=== PATIENT | male | born 1940 | race Caucasian/White ===

== ENCOUNTER → 2016-12-17 | Outpatient (CLI) | payer OTHER, BC ==
[~2016-12-17] MED LIST: ACYC-147 PO; CYAN1TAB4 PO; FOLI400T41 PO; GABA-113 PO; LCTX PO; MAGN1CAP2; MULT-845 PO; PANT40TA PO; SPIR25TA89 PO; TPRSR50 PO
[2016-12-17 10:48] LABS: BASO % 0.3 %; BASO ABS # 0.01 K/uL (0-0.2); COMPLETE YES; EOS % 1.6 %; HEMATOCRIT 39.3 % (42-52); IG% 0.9 %; LYMPH % 19.6 %; LYMPH ABS # 0.62 K/uL (1.2-3.4); MEAN CELL VOLUME 94.2 fL (80-100); MEAN CORPUSCULAR HEMOGLOBIN 32.9 pg (25-34); MEAN CORPUSCULAR HGB CONC 34.9 g/dl (32-36); MEAN PLATELET VOLUME 9.2 fL (7.4-10.4); MONO % 7.9 %; NEUT % 69.7 %; PLATELET COUNT 210 K/uL (130-400); RED BLOOD COUNT 4.17 M/uL (4.7-6.1); WHITE BLOOD COUNT 3.17 K/uL (4.8-10.8)
[2016-12-17 10:56] LABS: URINE APPEARANCE CLEAR (CLEAR); URINE BILIRUBIN NEG (NEG); URINE COLOR YELLOW; URINE NITRITE NEG (NEG); URINE SPECIFIC GRAVITY 1.019 (1.000-1.030); UROBILINOGEN NEG (NEG)
[2016-12-17 10:58] LABS: MANUAL MICROSCOPIC REQUIRED? NO; REVIEW REQ? NO
[2016-12-17 11:22] LABS: ESTIMATED AVERAGE GLUCOSE 117 mg/dl; HA1C FLAG Normal (Normal)
[2016-12-17 11:39] LABS: BLOOD UREA NITROGEN 19 mg/dl (7-18); BUN/CREATININE RATIO 15.8 (10-20); CARBON DIOXIDE 29 mmol/L (21-32); CHLORIDE 105 mmol/L (98-107); CHOLESTEROL 142 mg/dl (0-200); MAGNESIUM 2.4 mg/dl (1.8-2.4); POTASSIUM 4.1 mmol/L (3.5-5.1); SODIUM 141 mmol/L (136-145); TRIGLYCERIDES 285 mg/dl (0-150); URIC ACID 6.3 mg/dl (2.6-7.2); VERY LOW DENSITY LIPOPROT CALC 57 mg/dl
[2016-12-17 11:43] LABS: PROSTATE SPECIFIC ANTIGEN < 0.010 ng/ml (0.000-4.000)
[2016-12-17 11:44] LABS: GLUCOSE 126 mg/dl (70-99)
[2016-12-17 11:49] LABS: CHOLESTEROL/HDL RATIO 6.2; HDL CHOLESTEROL 23 mg/dl; LDL CHOLESTEROL CALCULATED 62 mg/dl
--- NOTE | 2016-12-24 06:14 | CODING QUERY MEDICAL NECESSITY ---
SUPPORTING DIAGNOSIS NEEDED Dr. Enamorado, A supporting diagnosis is required for the test/procedure performed on this patient in order for us to be reimbursed by the patient's insurance. Please provide a supporting diagnosis for the following test/procedure listed below next to the test name along with your signature. *If there is no additional diagnosis for this patient that would support the following test/procedure please document that below next to the test/procedure. Test(s)/Procedure(s) that require a supporting diagnosis: * [id number] GLYCATED HEMOGLOBIN DIAGNOSIS: DATE OF SERVICE: 12/17/16 Provider Signature: Date: Thank you Jordan Zuniga [facility] Information Management Once completed, please kindly fax back to [phone] For questions please call [phone]
== END | disposition home or self-care (01) ==
LOC: C.LAB1850 09:25
PROVIDERS: ATTEND Internal Medicine
DX: C88.0 Waldenstrom macroglobulinemia (principal); C61 Malignant neoplasm of prostate; R73.9 Hyperglycemia, unspecified

== ENCOUNTER → 2017-07-05 | Outpatient (CLI) | payer OTHER, BC ==
--- NOTE | 2017-07-05 15:14 | DIAGNOSTIC IMAGING REPORT ---
TWO VIEW CHEST CLINICAL HISTORY: Dyspnea on exertion. FINDINGS: PA and lateral chest radiographs are compared to study dated 02/10/2016 and correlated with chest CT dated 07/11/2015. A left subclavian central venous infusion port is unchanged in position. The cardiomediastinal silhouette is unremarkable. There is atherosclerotic calcification of the thoracic aorta. Pulmonary vasculature is noncongested chronic interstitial thickening similar to previous. There is elevation of left hemidiaphragm. A trace left pleural effusion is noted. There is no pneumothorax. The skeletal structures are osteopenic. Degenerative changes noted throughout the thoracic spine. There are acute minimally distracted left lateral 7th and 8th rib fractures. IMPRESSION: 1. There is left basilar atelectasis and a trace left pleural effusion. 2. There are acute appearing minimally distracted left lateral 7th and 8th rib fractures. Electronically signed by: Phil Mar M.D. 07/05/2017 3:13 PM Dictated Date/Time: 07/05/2017 3:10 PM
--- NOTE | 2017-07-05 15:17 | DIAGNOSTIC IMAGING REPORT ---
L RIBS UNILATERAL WITH PA CHEST HISTORY: 77 years-old Male R06.02 SOB (shortness of breath) on [id number] acute shortness of breath with left-sided rib pain status post fall COMPARISON: Chest radiograph 07/05/2017 at 2:33 PM TECHNIQUE: 5 views of the left ribs. FINDINGS: Acute transverse fractures involve the posterior lateral aspects of the left sixth and eighth ribs without significant displacement. Acute mildly displaced fracture involves the posterior lateral aspect of the left seventh rib. Moderate stool volume is seen throughout the colon. Left pectoral Tjjewm-k-Bdgy catheter is noted with distal tip terminating in the region of the SVC. Linear subsegmental left basilar opacities suggest atelectasis. Blunting of left costophrenic angle. IMPRESSION: Acute fractures of the posterior lateral left sixth through eighth ribs with mild displacement of the seventh rib fracture. The above report was generated using voice recognition software. It may contain grammatical, syntax or spelling errors. Electronically signed by: Kurt Swift M.D. 07/05/2017 3:16 PM Dictated Date/Time: 07/05/2017 3:11 PM
--- NOTE | 2017-07-05 15:17 | DIAGNOSTIC IMAGING REPORT ---
LEFT SHOULDER 2 VIEWS; LEFT SCAPULA 2 VIEWS CLINICAL HISTORY: Fall with left shoulder pain. FINDINGS: 2 views of the left shoulder anterior views of the left scapula are obtained. No prior studies are available for comparison at the time of dictation. The skeletal structures are osteopenic. There is no radiographic evidence of fracture or dislocation involving the left shoulder. Mild productive change is seen at the acromioclavicular joint. There is no radiographic evidence of left scapular fracture. The visualized left upper lobe lung parenchyma appears clear. A left subclavian central venous infusion port is noted. There are acute appearing left lateral 6th and 7th rib fractures. IMPRESSION: 1. Osteopenia with no radiographic evidence of left shoulder fracture or dislocation. 2. There is no radiographic evidence of left scapular fracture. 3. There are acute appearing left lateral 6th and 7th rib fractures. Electronically signed by: Phil Mar M.D. 07/05/2017 3:16 PM Dictated Date/Time: 07/05/2017 3:13 PM
--- NOTE | 2017-07-05 15:27 | DIAGNOSTIC IMAGING REPORT ---
THORACIC SPINE 3 VIEWS ROUTINE, L-SPINE MIN 4 VIEWS ROUTINE HISTORY: 77 years-old Male R06.02 SOB (shortness of breath) on [id number] acute shortness of breath. Acute back pain status post fall COMPARISON: Lumbar spine radiographs 11/23/2015 TECHNIQUE: 3 views of the thoracic spine with 5 views of the lumbar spine FINDINGS: THORACIC: Left subclavian Mlenne-f-Vxjp catheter is noted with distal tip projecting over the region of the mid SVC. Mild levoscoliosis of the upper thoracic spine. Multilevel bridging osteophytosis with intervertebral disc space narrowing. No acute fracture or subluxation identified. No acute compression fracture is seen. LUMBAR: 5 lumbar type vertebral segments. Extensive bridging osteophytosis redemonstrated. No evidence of spondylolysis or spondylolisthesis. Multilevel intervertebral disc space narrowing with hypertrophic facet arthrosis. Degenerative spurring is also noted throughout the spinous processes. No acute fracture or subluxation identified. Unchanged 3 mm retrolisthesis L2 on L3. Moderate formed stool throughout the colon suggest constipation. IMPRESSION: 1. No acute fracture or subluxation of the thoracic or lumbar spine. 2. 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 The above report was generated using voice recognition software. It may contain grammatical, syntax or spelling errors. Electronically signed by: Kurt Swift M.D. 07/05/2017 3:25 PM Dictated Date/Time: 07/05/2017 3:21 PM
--- NOTE | 2017-07-05 15:27 | DIAGNOSTIC IMAGING REPORT ---
THORACIC SPINE 3 VIEWS ROUTINE, L-SPINE MIN 4 VIEWS ROUTINE HISTORY: 77 years-old Male R06.02 SOB (shortness of breath) on [id number] acute shortness of breath. Acute back pain status post fall COMPARISON: Lumbar spine radiographs 11/23/2015 TECHNIQUE: 3 views of the thoracic spine with 5 views of the lumbar spine FINDINGS: THORACIC: Left subclavian Mhxvrt-d-Tlsw catheter is noted with distal tip projecting over the region of the mid SVC. Mild levoscoliosis of the upper thoracic spine. Multilevel bridging osteophytosis with intervertebral disc space narrowing. No acute fracture or subluxation identified. No acute compression fracture is seen. LUMBAR: 5 lumbar type vertebral segments. Extensive bridging osteophytosis redemonstrated. No evidence of spondylolysis or spondylolisthesis. Multilevel intervertebral disc space narrowing with hypertrophic facet arthrosis. Degenerative spurring is also noted throughout the spinous processes. No acute fracture or subluxation identified. Unchanged 3 mm retrolisthesis L2 on L3. Moderate formed stool throughout the colon suggest constipation. IMPRESSION: 1. No acute fracture or subluxation of the thoracic or lumbar spine. 2. 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 The above report was generated using voice recognition software. It may contain grammatical, syntax or spelling errors. Electronically signed by: Kurt Swift M.D. 07/05/2017 3:25 PM Dictated Date/Time: 07/05/2017 3:21 PM
[2017-07-05 17:00] LABS: HEMATOCRIT 41.4 % (42-52); HEMOGLOBIN 13.3 g/dL (14.0-18.0); MEAN CELL VOLUME 95.4 fL (80-100); MEAN CORPUSCULAR HEMOGLOBIN 30.6 pg (25-34); MEAN CORPUSCULAR HGB CONC 32.1 g/dl (32-36); MEAN PLATELET VOLUME 9.1 fL (7.4-10.4); PLATELET COUNT 242 K/uL (130-400); RED CELL DISTRIBUTION WIDTH CV 18.3 % (11.5-14.5); RED CELL DISTRIBUTION WIDTH SD 64.1 fL (36.4-46.3); WHITE BLOOD COUNT 6.86 K/uL (4.8-10.8)
[2017-07-05 17:50] LABS: BASO % 0.4 %; BASO ABS # 0.03 K/uL (0-0.2); EOS % 0.7 %; EOS ABS # 0.05 K/uL (0-0.5); LYMPH % 13.7 %; LYMPH ABS # 0.94 K/uL (1.2-3.4); MONO % 9.9 %; MONO ABS # 0.68 K/uL (0.11-0.59); NEUT % 73.8 %; NEUT ABS # 5.06 K/uL (1.4-6.5)
== END | disposition home or self-care (01) ==
LOC: C.RAD1850 14:30
PROVIDERS: ATTEND Internal Medicine
DX: R06.02 Shortness of breath (principal); S22.42XA Multiple fractures of ribs, left side, initial encounter for closed fracture; J98.11 Atelectasis; W19.XXXA Unspecified fall, initial encounter; M25.78 Osteophyte, vertebrae; M85.822 Other specified disorders of bone density and structure, left upper arm

== ENCOUNTER → 2017-07-19 | Outpatient (CLI) | payer OTHER, BC ==
[2017-07-19 11:35] LABS: HEMOGLOBIN A1C 5.5 % (4.5-5.6)
== END | disposition home or self-care (01) ==
LOC: C.LAB1850 09:23
PROVIDERS: ATTEND Internal Medicine
DX: R73.9 Hyperglycemia, unspecified (principal)

== ENCOUNTER → 2017-07-31 | Outpatient (CLI) | payer OTHER, BC ==
--- NOTE | 2017-07-31 14:18 | DIAGNOSTIC IMAGING REPORT ---
CHEST 2 VIEWS ROUTINE CLINICAL HISTORY: C88.0 Waldenstroms [id number] SOB (shortness of breath COMPARISON STUDY: 07/05/2017 FINDINGS: The heart is normal in size. There is a left subclavian A-Port catheter present. There is no failure. There is no focal pulmonary consolidation. There is minor left basilar atelectatic change. There are healing left-sided rib fractures.[ IMPRESSION: No active disease in the chest. Electronically signed by: Antonio Levin M.D. 07/31/2017 2:17 PM Dictated Date/Time: 07/31/2017 2:16 PM
== END | disposition home or self-care (01) ==
LOC: C.RAD1850 14:06
PROVIDERS: ATTEND Internal Medicine
DX: C88.0 Waldenstrom macroglobulinemia (principal); R06.02 Shortness of breath; R07.81 Pleurodynia

== ENCOUNTER → 2017-08-05 | Outpatient (CLI) | payer OTHER, BC ==
[~2017-08-05] MED LIST changes: +OPTIRAY 320 IV PRN
--- NOTE | 2017-08-05 07:41 | DIAGNOSTIC IMAGING REPORT ---
CT OF THE CHEST WITH IV CONTRAST CLINICAL HISTORY: WALDENSTROMS MACROGLOBULINEMIA COMPARISON STUDY: Chest CT July 11, 2015 and chest radiograph July 31, 2017. TECHNIQUE: Following IV administration of 116 mL of Optiray-320, helical axial images of the chest were obtained. Sagittal and coronal reconstructions were viewed as well as maximal intensity projections on an independent 3-D workstation. A dose lowering technique was utilized adhering to the principles of ALARA. CT DOSE: 2270.60 mGy.cm FINDINGS: No enlarged axillary, mediastinal or hilar lymph nodes are present. The size of the heart is normal. There is no pericardial effusion. The central airways are patent. No pneumothorax is noted. There is trace left pleural fluid. There is no consolidation to suggest pneumonia. Left lower lobe subpleural opacity reflects atelectasis. No acute thoracic spine fracture is noted. There is extensive anterior osteophytosis of the thoracic spine. Note is made of multiple subacute healing left-sided rib fractures. Small the left fourth through 11th ribs. Several ribs are fractured in 2 locations. The left lateral sixth and eighth rib fractures are mildly displaced. The left lateral seventh rib fracture is moderately displaced. The abdomen and pelvis will be reported separately. Mild splenomegaly is noted. This has developed since exam of July 11, 2015. There are gallstones within the gallbladder. IMPRESSION: 1. No thoracic lymphadenopathy. 2. Mild splenomegaly which is new since CT of July 11, 2015 but similar to a chest CT of February 26, 2013. 3. Multiple subacute healing left-sided rib fractures. Several ribs are fractured in two locations. Moderately displaced seventh rib fracture mildly displaced sixth and eighth rib fractures. No pneumothorax. Trace left pleural fluid. Electronically signed by: Gurpreet Bowling M.D. 08/05/2017 7:39 AM Dictated Date/Time: 08/05/2017 7:24 AM
--- NOTE | 2017-08-05 07:46 | DIAGNOSTIC IMAGING REPORT ---
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 TECHNIQUE: Multidetector CT of the abdomen and pelvis was performed after the administration of oral and intravenous contrast. IV contrast: 116 mL of Optiray 320. A dose lowering technique was used consistent with the principles of ALARA (as low as reasonably achievable). COMPARISON: PET/CT from 08/06/2012, 12/17/2012, and 08/24/2013. CT DOSE (mGy.cm): The estimated cumulative dose is 2270.60. FINDINGS: Division Order Analyst topogram: Surgical clips project over the pelvis. Lung bases: Minimal reticular and bandlike opacities dependently at the lung bases, possibly scarring or atelectasis. Normal heart size. No pericardial or pleural effusion. 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 Well-defined hypodensity in the right hepatic lobe grossly unchanged from prior and likely hepatic cyst. Patent hepatic vasculature. Biliary: No intrahepatic or extrahepatic biliary ductal dilatation. Gallbladder contains gallstones. Pancreas: Mild parenchymal atrophy. Spleen: The spleen is not significantly enlarged, measuring 12.8 cm in maximal sagittal dimension. Previously the spleen measured 11.0 cm in maximal sagittal dimension on 08/21/2013. Adrenal glands: Normal. Kidneys and ureters: Well-defined hypodensities in the right kidney likely simple cysts parenchyma otherwise normal. No nephrolithiasis. No hydronephrosis. Ureters normal. Bladder: Normal. Pelvic organs: The patient is status post prostatectomy. No abnormal soft tissue in the region of the urethral anastomosis allowing for limitations of CT. Bowel: Diverticulosis of the proximal sigmoid colon. Mild stool burden in the transverse and right colon. No bowel obstruction. Peritoneal cavity: No free fluid or intraperitoneal gas. Lymph nodes: Few subcentimeter lymph nodes in the left periaortic and aortocaval region immediately proximal to the aortic bifurcation. Vague perivascular infiltration in the common iliac region. These findings are minimally progressed since 2013. Prominent left external iliac lymph node measuring 8 mm in the short axis (series 7 image 356), unchanged. Vague infiltration of the obturator regions of the bilateral external iliac vasculature slightly progressed from prior. Vasculature: Atherosclerosis of the normal caliber abdominal aorta. IVC patent. Abdominal wall: Fat-containing left inguinal hernia. Musculoskeletal: Degenerative changes of the spine. Osteopenia. Evidence of syndesmophytosis in the thoracolumbar junction. IMPRESSION: 1. No overwhelming evidence of splenomegaly, lymphadenopathy, or other lymphoproliferative involvement in the abdomen or pelvis. However, the spleen has minimally increased in size since 2013. 2. mild progression of vague perivascular infiltration in the retroperitoneum and external iliac regions. This is nonspecific and could alternatively relate to lymphatic drainage obstruction after prostatectomy if the patient had a lymph node dissection. 3. Postsurgical changes of prostatectomy. Electronically signed by: Junior Patten M.D. 08/05/2017 7:45 AM Dictated Date/Time: 08/05/2017 7:30 AM
== END | disposition home or self-care (01) ==
LOC: C.CTS 06:28
PROVIDERS: ATTEND Nurse Practitioner Family
DX: C88.0 Waldenstrom macroglobulinemia (principal); R16.1 Splenomegaly, not elsewhere classified; S22.42XD Multiple fractures of ribs, left side, subsequent encounter for fracture with routine healing; X58.XXXD Exposure to other specified factors, subsequent encounter; R93.5 Abnormal findings on diagnostic imaging of other abdominal regions, including retroperitoneum